=== PATIENT | female | born 1985 | race Caucasian/White ===

== ENCOUNTER 2017-05-03 10:50 | Inpatient (IN) | payer OTHER ==
[~2017-05-03] VITALS: Ht 167.6 cm; Wt 75.7 kg
[~2017-05-03 10:50] MED LIST: PREN1TAB47 PO
[2017-05-03] MEDS ORDERED: Lactated Ringer's 1,000 ML IV PRN (11:10)
[2017-05-03] MEDS ORDERED: Oxytocin 10 Unit/mL Inj IM PRN ×2 (11:10→19:15)
[2017-05-03] MEDS ORDERED: Oxytocin 30 Units/500 mL LR 30 UNITS in IV Premix 1 EACH IV PRN ×2 (11:10→19:15)
[2017-05-03] MEDS ORDERED: fentaNYL-PF 50 mCg/mL 2 mL Inj IVPUSH PRN (11:10)
[2017-05-03] MEDS ORDERED: Carboprost 250 mCg/mL Inj IM PRN ×2 (11:10→19:15)
[2017-05-03] MEDS ORDERED: Hemorrhage Kit, Post Partum XX ONE ×2 (11:10→19:15)
[2017-05-03] MEDS ORDERED: Sodium Chloride LOK Flush 10 mL Syringe IVFLUSH PRN (11:10)
[2017-05-03] MEDS ORDERED: Methylergonovine 0.2 mg/mL Inj IM PRN ×2 (11:10→19:15)
[2017-05-03 11:33] LABS: Mean Corpuscular Hemoglobin 29.2 pg (27.0-35.0); Mean Corpuscular Volume 88.6 fL (81-100)
[2017-05-03] MEDS ORDERED: Lactated Ringer's 500 ML IV ONE (11:57)
[2017-05-03] MEDS ORDERED: fentaNYL 2 mCg/mL-Bupiv 0.125% 100 ML EPIDURAL SCH (12:00)
[2017-05-03] MEDS ORDERED: Atropine 1 mg/10 mL (Code) Syringe IVPUSH PRN (12:00)
[2017-05-03] MEDS ORDERED: EPHEDrine Sulfate 50 mg/mL Inj IVPUSH PRN (12:00)
[2017-05-03] MEDS ORDERED: Ondansetron 2 mg/mL 2 mL Inj IVPUSH PRN (12:00)
[2017-05-03] MEDS ORDERED: Phenylephrine/NS-PF 100 mCg/mL 5 mL Syringe IVPUSH PRN (12:00)
--- NOTE | 2017-05-03 12:00 | PCM.HPANE ---
Patient Data Date of Service: May 03, 2017 Surgeon Admitting Provider:Basilio Cabrera MD Attending Provider:Basilio Cabrera MD Primary Care Physician:Nicol Cabrera MD Other Provider:Margarita Pringle Anesthesia Reason for Visit Early Labor EARLY LABOR Ht/WT & BMI Height (Centimeters): 167.6 Weight (Kilograms): 75.75 Body Mass Index Allergies Coded Allergies: No Known Allergies (Unverified Allergy, 11/06/11) Past Anesthesia History Anesthesia History: Denies:: Abnormal Airway, Anesthesia Reactions, Malignant Hyperthermia Diabetes History Hx Diabetes?: No MRSA MRSA: No Medications Hypertension Medication: No Home Meds Incl Beta Abby: No Reported Medications Vit/Fe Fumarate/Fa-Expunged Drug, Do (-Expunged Drug, Do Not Renew!)1 Tab Tablet1 Tab PO DAILY 11/06/11 History History of ENT Problems?: No HEENT History: Denies:: Abnormal Airway Denture Type: None Teeth Condition: Within Normal Limits Hx of Heart Problems?: No Cardiovascular History: Denies:: Chest Pain Congestive Heart Failure Coronary Artery Disease Heart Murmur Valvular Heart Disease Hx of Respiratory Problem?: No Respiratory History: Denies:: Asthma Cough Hx Neurologic Problems?: No Neurological History: Denies:: Multiple Sclerosis Peripheral Neuropathy Hx of GI Problems?: No Gastrointestinal History: Denies:: Gastroesphageal Reflux Hx of Problems?: No Female Hx: Positive for:: Currently Hx Musculoskeletal Problems?: No Musculoskeletal History: Denies:: Back Injury Hx of Psycho/Social Problems?: No Hx Surgeries?: No Other Pertinent History: Right leg paresthesias after prior labor epidural after difficult placement. Resolved after several weeks. Hx Alcohol Use: NoHx Substance Use: No Smoking Status: Never Smoker Have You Smoked inLast 12 mo: No Stop/Bang Risk Assessment Category Category 1A: Patient has history of documented sleep apnea, and HAS NOT received any narcotic, sedative or anesthesia administration during this stay. Category 1B: Patient has history of documented sleep apnea, and HAS received any narcotic , sedative or anesthesia administration during this stay Category 2: Patient has SUSPECTED Obstructive Sleep Apnea, and HAS received any narcotic , sedative or anesthesia administration during this stay. Category 3: Patient has SUSPECTED Obstructive Sleep Apnea and HAS NOT received narcotic, sedative or anesthesia administration during this stay. Category 4: Outpatient in Procedural Areas with known sleep apnea or who screen positive for High Risk via the STOP/BANG questionnaire. Exam Exam General Appearance: Alert, Oriented X3, Cooperative, No Acute Distress HEENT/AIRWAY: MP 2 Lungs: Clear to Auscultation, Normal Air Movement Heart: Exam Unremarkable, Regular Rate/Rhythm, No Murmurs/Rubs/Gallops Meds/Labs/Diagnostics Labs Test 05/03/17 11:20 White Blood Count 12.9th/mm3 (3.8-10.1) Red Blood Count 4.28mil/mm3 (3.90-5.20) Hemoglobin 12.5g/dL (12.0-15.6) Hematocrit 37.9% (35.0-46.0) Mean Corpuscular Volume 88.6fL (81-100) Mean Corpuscular Hemoglobin 29.2pg (27.0-35.0) Mean Corpuscular Hemoglobin Concent 33.0% (32.0-37.0) Red Cell Distribution Width 13.5% (12.3-15.4) Platelet Count 200bil/L (150-400) Plan Impression Patient chart reviewed, patient interviewed and anesthestic plan with risks, benefits, and alternatives discussed, and informed consent obtained. ASA Physical Status: ASA2 Mod Systemic Disease Anesthetic Plan: Epidural (Labor) Bene/Risks/Altern/Consents: Yes HP Complete Prior to Induction: Yes Other Emphasized the possibility of paresthesias like she experienced with her prior labor epidural. I explained that they could be due to pressure on nerves in the pelvis from the baby as well as the epidural. She understood and wished to proceed. Lon John MD May 03, 2017 12:00
[2017-05-03] MEDS: Lactated Ringer's 1,000 ML IV SCH ×2 (18:20→19:23)
[2017-05-03] MEDS ORDERED: Lactated Ringer's 1,000 ML IV SCH (19:12)
[2017-05-03] MEDS ORDERED: Benzocaine (Dermoplast) 20% 60 Gm Spray TOPICAL PRN (19:15)
[2017-05-03] MEDS ORDERED: LANOlin HPA 7 Gm Ointment TOPICAL PRN (19:15)
[2017-05-03] MEDS ORDERED: HYDROcodone-APAP 5-325 mg Tablet PO PRN (19:15)
[2017-05-03] MEDS: Witch Hazel-Glycerin Pads TOPICAL PRN (19:45)
--- NOTE | 2017-05-03 20:21 | OP ---
[address] [address] OPERATIVE REPORT PATIENT: MAURA HAHN : 1985 MR#: [id number] ADMIT: 05/03/2017 JOB ID: [id number] DATE OF SURGERY: POSTOPERATIVE DIAGNOSIS(ES): PREOPERATIVE DIAGNOSIS(ES): SURGEON: DELIVERY SUMMARY: On May 03, 2017, at 18:40, this G2, P2 female at 39 weeks and 1 day estimated gestational age delivered a vigorous male with Apgars of 9 and 9 by vacuum delivery. The patient presented to Labor and Delivery at 4 cm dilation and rosalba every 1-3 minutes at 11:30 this morning. She progressed in normal fashion after receiving an epidural to complete by 16:40. Her rate of progression did slow as she approached complete, however. Her membranes were artificially ruptured by me just after her epidural placement. The fluid was clear. She had no other medications during her labor. The patient pushed over the course of 2 hours but was running out of energy quickly even after an hour. Her pushing was effective at the front end of the push but fell off rapidly with each push. We did not make as much progress as expected in the 2 hours and so a vacuum was applied at first to give her momentum. Suction did not take at first and there was a quick pop-off, but I retrieved a different vacuum and this one worked more effectively. On the other hand, she did not make a lot of progress with the first two pulls of the vacuum. We held off on this for a while and tried different position changes while pushing. The tracing was excellent throughout. On the other hand, as stated above, she was running out of energy and we had limited options at this point for delivery vaginally. I then had her push and applied the vacuum on the 2nd and 3rd pushes as we neared her vaginal delivery time and this made progress to the point of after two more pulls for a total of four pulls with the vacuum during this delivery. The risk was deemed worth it given progress on the 3rd and 4th pulls. Of note is that I had made sure that we were clear of the fontanels and the cervix with the application of the vacuum. The patient ended up delivering across a third-degree midline perineal laceration. The infant was delivered up and onto her abdomen where the cord was clamped and cut. This was after 30 seconds of delayed clamping. The had cried right away and had good tone. The patient patient's cord blood was sent. The placenta delivered approximately 5-7 minutes later spontaneously and intact with a three-vessel cord. The patient required some local anesthesia with 10 cc of 1% lidocaine. The third-degree was repaired in the usual fashion using 2-0 Vicryl. The second-degree was then repaired in a running fashion using 3-0 chromic. The patient tolerated all this quite well. The patient's bleeding was less than 300 cc. Counts were correct x2. She was in excellent condition following the procedure but just tired. There were no other complications of the procedure, but Pitocin was run given the nature of the vacuum delivery.
[2017-05-03] MEDS: oxyCODONE-Acetamin 5-325 mg Tablet PO PRN (21:36)
[2017-05-04] MEDS: oxyCODONE-Acetamin 5-325 mg Tablet PO PRN ×5 (01:50→23:33)
[2017-05-04 09:17] LABS: Mean Corpuscular Hemoglobin 28.8 pg (27.0-35.0); Mean Corpuscular Volume 89.7 fL (81-100)
--- NOTE | 2017-05-04 21:47 | PCM.PNOBPP ---
Subjective Date of Service May 04, 2017 Post : Spontaneous Vaginal Delivery Lochia: Normal Pain Management: PO pain meds Gastrointestinal: Good Appetite, No N/V Postop Activity: Ambulating Independently Labs Laboratory Tests 05/04/17 08:05: White Blood Count 15.2, Red Blood Count 3.78, Hemoglobin 10.9, Hematocrit 33.9, Mean Corpuscular Volume 89.7, Mean Corpuscular Hemoglobin 28.8, Mean Corpuscular Hemoglobin Concent 32.2, Red Cell Distribution Width 13.7, Platelet Count 171 Exam Vital Signs Vital Signs: VS reviewed, stable Exam Abdomen: Fundus firm Perineum: Intact Lungs: Clear to Auscultation Heart: Exam Unremarkable General: Alert, Oriented X3 OB Post Assessment/Plan Problems: (1) Status post vacuum-assisted vaginal delivery Status: Acute ICD Code: Z87.42 Pain Evaluation: Adequate Pain Control Post plan: Continue routine post care, Discharge home tomorrow Basilio Cabrera MD May 04, 2017 21:47
[2017-05-05] MEDS: oxyCODONE-Acetamin 5-325 mg Tablet PO PRN (04:04)
[2017-05-05] MEDS: Witch Hazel-Glycerin Pads TOPICAL PRN (08:31)
--- NOTE | 2017-05-05 09:25 | PCM.DC.OB ---
Obstetrical Discharge Summary Date of Service May 05, 2017 Date of hospital admission May 03, 2017 at 11:10 Date of Discharge: May 05, 2017 Providers Admitting Physician: Basilio Cabrera MD Primary Care Physician: Nicol Cabrera MD Attending Physician: Basilio Cabrera MD Problems: (1) Status post vacuum-assisted vaginal delivery Status: Acute ICD Code: Z87.42 Consultations None Invasive procedures Vacuum delivery Date of Procedure: May 03, 2017 Hospital Course: Patient presented in labor. Vacuum delivery for maternal exhaustion and poor descent. Third degree perineal laceration repaired without complication. Recovered well. Vit/Fe Fumarate/Fa-Expunged Drug, Do (-Expunged Drug, Do Not Renew!) 1 Tab Tablet 1 TAB PO DAILY (Reported) Follow-up plan See me at each well child check and at 8 weeks post . Discharge Diet: No restrictions Discharge Activity-General: Pelvic Rest for 6 weeks, Try not to overdue, Be up and about, Balance rest and activity, Activity as pain allows, Activity as energy allows, No lifting >15 pounds for 2 weeks copies to: Nicol Cabrera MD, David B MD May 05, 2017 09:25
--- NOTE | 2017-05-05 09:26 | PCM.DIOB ---
Obstetrical Disch Instruction Dates of Hospitalization Date of Hospital Admission May 03, 2017 at 11:10 Providers Admitting Physician: Basilio Cabrera MD Primary Care Physician: Nicol Cabrera MD Attending Physician: Basilio Cabrera MD Discharge Diagnosis Problems: (1) Status post vacuum-assisted vaginal delivery Status: Acute ICD Code: Z87.42 Diet Discharge Diet: No restrictions Activity Discharge Activity-General: Pelvic Rest for 6 weeks, Try not to overdue, Be up and about, Balance rest and activity, Activity as pain allows, Activity as energy allows, No lifting >15 pounds for 2 weeks Dressing and Incisional Care Hygiene: May shower, Perineal care, Sitz bath, Dermoplast spray, Witch Rosalind pads Follow Up Plan Follow-up Provider (F9): Basilio Cabrera MD Follow-up appointment: Weeks (8) Call your provider for: Fever or Chills, Shortness of breath, Heavy vaginal bleeding, Excessive constipation, Vaginal discomfort, Red painful breasts Basilio Cabrera MD May 05, 2017 09:26
[2017-05-05] MEDS ORDERED: OXYC1TAB24 PO (09:28)
[2017-05-05] MEDS ORDERED: IBUP800T28 PO (09:28)
[2017-05-05] MEDS ORDERED: DOCU-41 PO (09:28)
== END 2017-05-05 11:00 | disposition home or self-care (01) | DRG 775 ==
LOC: FBCO 10:50 → FBC 11:10
PROVIDERS: ADMIT Family Medicine; ATTEND Family Medicine
PROC: 10D07Z6 Extraction of Products of Conception, Vacuum, Via Natural or Artificial Opening (ICD-10-PCS; principal; 2017-05-03)
PROC: 0DQR0ZZ Repair Anal Sphincter, Open Approach (ICD-10-PCS; 2017-05-03)
PROC: 10907ZC Drainage of Amniotic Fluid, Therapeutic from Products of Conception, Via Natural or Artificial Opening (ICD-10-PCS; 2017-05-03)
DX: O32.4XX0 Maternal care for high head at term, not applicable or unspecified (principal); O70.20 Third degree perineal laceration during delivery, unspecified; Z37.0 Single live birth; Z3A.39 39 weeks gestation of pregnancy